=== PATIENT | female | born 1945 | race Caucasian/White ===

== ENCOUNTER 2017-05-27 16:48 | Inpatient (IN) | payer OTHER ==
[~2017-05-27] VITALS: Ht 157.5 cm; Wt 81.7 kg
[2017-05-27 17:46] LABS: BASOPHIL (%) 0.1 % (0-1); EOSINOPHIL (%) 0 % (0-5); HEMATOCRIT 27.7 % (36.0-46.0); HEMOGLOBIN 8.9 G/DL (11.9-15.5); IMMATURE GRANULOCYTE (%) 0.5 % (0.0-0.7); LYMPHOCYTE (%) 14.9 % (15-42); LYMPHOCYTE COUNT 1.1 K/uL (1.0-2.8); MCHC 32.1 G/DL (30.0-36.0); MONOCYTE (%) 2.9 % (3-12); MONOCYTE COUNT 0.2 K/uL (0-0.8); NEUTROPHIL (%) 81.6 % (45-76); PLATELET COUNT 209 K/uL (156-360); RBC DIS.WIDTH-CV 16.6 % (11.8-14.6); RBC DIS.WIDTH-SD 48.2 % (39-53); RED BLOOD COUNT 3.42 M/uL (3.80-5.20); WHITE BLOOD COUNT 7.3 K/uL (4.1-10.2)
[2017-05-27 17:55] LABS: ALBUMIN 3.3 g/dL (3.2-4.8); CHLORIDE 107 mEq/L (99-109); SODIUM 139 mEq/L (136-147)
[2017-05-27 17:56] LABS: MAGNESIUM 1.8 mg/dL (1.3-2.7)
[2017-05-27 17:58] LABS: GLUCOSE 210 mg/dL (70-99); TOTAL PROTEIN 5.5 g/dL (6.4-8.3)
[2017-05-27 18:00] LABS: TOTAL BILIRUBIN 0.4 mg/dL (0.0-1.0)
[2017-05-27 18:01] LABS: ALKALINE PHOSPHATASE 79 IU/L (3-129); CREATININE 0.7 mg/dL (0.6-1.3); GFR ESTIMATE (CALCULATED) > 59 mL/min/
[2017-05-27 18:02] LABS: UREA NITROGEN (BUN) 30 mg/dL (9-23)
[2017-05-27 18:03] LABS: AST (GOT) 27 IU/L (2-34)
[2017-05-27 18:04] LABS: ALT (GPT) 21 IU/L (3-49); CREATINE KINASE 203 IU/L (1-294); TOTAL CK 203 IU/L (1-294)
[2017-05-27 18:07] LABS: TROP-I INTERPRETATION NEGATIVE; TROPONIN-I 0.06 ng/mL (0.0-0.30)
[2017-05-27 18:10] LABS: INTER. NORMALIZED RATIO 1.1
[2017-05-27 18:13] LABS: CK-MB 5.4 ng/mL (0.0-4.9); CKMB RELATIVE INDEX 2.7 (0.0-3.9); PTT 21.9 SEC (25-37)
[2017-05-27 19:49] VITALS: BP 123/50
[2017-05-27] MEDS ORDERED: LYRICA75 MG PO (20:10)
[2017-05-27] MEDS ORDERED: MYCOSTATIN15 GM PO (20:10)
[2017-05-27] MEDS ORDERED: CELEBREX200 MG PO (20:11)
[2017-05-27] MEDS ORDERED: TOPROL XL100 MG PO (20:11)
[2017-05-27] MEDS ORDERED: CRESTOR10 MG PO (20:11)
[2017-05-27] MEDS ORDERED: ELAVIL50 MG PO (20:12)
[2017-05-27] MEDS ORDERED: FOLIC ACID0.4 MG PO (20:13)
[2017-05-27] MEDS ORDERED: HYDROCODON-ACE1 EAC9 PO (20:13)
[2017-05-27] MEDS ORDERED: SUPER B COMPL400 MCG PO (20:14)
[2017-05-27 23:20] VITALS: BP 201/85
[2017-05-27 23:30] VITALS: BP 201/85
[2017-05-28] VITALS (28 sets, daily range): BP systolic 110–182; BP diastolic 59–149
[2017-05-28 00:48] LABS: HEMATOCRIT 25.6 % (36.0-46.0); HEMOGLOBIN 8.5 G/DL (11.9-15.5); MCV 81.5 FL (83-99)
[2017-05-28 01:11] LABS: APPEARANCE SL.HAZY ((CLEAR)); BILIRUBIN NEGATIVE; BLOOD NEGATIVE; COLOR YELLOW ((YELLOW)); GLUCOSE (STRIP) NEGATIVE; KETONES 20; LEUKOCYTES SMALL; NITRITE POSITIVE; PROTEIN (STRIP) NEGATIVE; SPECIFIC GRAVITY 1.033 (1.000-1.030); UROBILINOGEN 0.2 MG/DL (0.2-1.0)
[2017-05-28 01:16] LABS: BACTERIA 2+ /HPF; EPITHELIAL CELLS RARE /HPF; HYALINE CASTS 0-5 /LPF; MUCUS NONE SEEN /LPF; RED BLOOD CELLS 0-5 /HPF (0-5); UCUL ADDED? YES; WHITE BLOOD CELLS 30-40 /HPF (0-5)
[2017-05-28 05:22] LABS: HEMATOCRIT 24.3 % (36.0-46.0); HEMOGLOBIN 7.7 G/DL (11.9-15.5); MCH 26.2 PG (29.0-34.0); MCHC 31.7 G/DL (30.0-36.0); MCV 82.7 FL (83-99); PLATELET COUNT 186 K/uL (156-360); RBC DIS.WIDTH-CV 16.3 % (11.8-14.6); RBC DIS.WIDTH-SD 48.6 % (39-53); RED BLOOD COUNT 2.94 M/uL (3.80-5.20)
[2017-05-28 05:45] LABS: INTER. NORMALIZED RATIO 1.1
[2017-05-28 05:46] LABS: CHLORIDE 111 MEQ/L (99-109); CREATININE 0.6 MG/DL (0.6-1.3); GFR ESTIMATE (CALCULATED) > 59 mL/min/; IRON 46 MCG/DL (35-150); POTASSIUM 4.1 MEQ/L (3.7-5.4); SODIUM 144 MEQ/L (136-147); TRANSFERRIN (TIBC) 262.5 mg/dL (215-380); TRANSFERRIN SATUR. 18 % (20-55); UREA NITROGEN (BUN) 21 mg/dL (9-23)
[2017-05-28 05:48] LABS: PTT 23.6 SEC (25-37)
[2017-05-28 05:50] LABS: GLUCOSE 115 mg/dL (70-99)
[2017-05-28 10:42] LABS: FOLIC ACID (FOLATE) > 22.0 NG/ML (5.0-22.0)
[2017-05-28 11:03] LABS: FERRITIN 16 NG/ML (10-291)
[2017-05-28 11:52] LABS: HDL CHOLESTEROL 40 MG/DL (Desirable>=50); LDL CHOLESTEROL 29 mg/dL (Desirable<100); NON-HDL CHOLESTEROL 44 mg/dL (Desirable<160); TOTAL CHOLESTEROL 84 mg/dL (Desirable<200); TRIGLYCERIDES 73 MG/DL (Normal: <150)
[2017-05-28 13:20] LABS: HEMATOCRIT 29.2 % (36.0-46.0); HEMOGLOBIN 9.4 G/DL (11.9-15.5); MCV 82.5 FL (83-99)
[2017-05-28 13:29] LABS: HEMOGLOBIN A1c (GLYCOHEMOGLOB) 5.6 % (Below 5.7)
[2017-05-28 18:36] LABS: HEMATOCRIT 32.7 % (36.0-46.0); HEMOGLOBIN 10.4 G/DL (11.9-15.5); MCV 83.8 FL (83-99)
[2017-05-29] VITALS (16 sets, daily range): BP systolic 151–180; BP diastolic 84–154
[2017-05-29 05:35] LABS: BASOPHIL (%) 0.6 % (0-1); EOSINOPHIL (%) 4.1 % (0-5); EOSINOPHIL COUNT 0.3 K/uL (0-0.3); HEMATOCRIT 28.8 % (36.0-46.0); HEMOGLOBIN 9.2 G/DL (11.9-15.5); IMMATURE GRANULOCYTE (%) 0.4 % (0.0-0.7); LYMPHOCYTE (%) 25.7 % (15-42); LYMPHOCYTE COUNT 1.8 K/uL (1.0-2.8); MCH 26.4 PG (29.0-34.0); MCHC 31.9 G/DL (30.0-36.0); MCV 82.5 FL (83-99); MONOCYTE (%) 9.4 % (3-12); MONOCYTE COUNT 0.7 K/uL (0-0.8); NEUTROPHIL (%) 59.8 % (45-76); NEUTROPHIL COUNT 4.3 K/uL (1.8-6.4); PLATELET COUNT 149 K/uL (156-360); RBC DIS.WIDTH-CV 16.8 % (11.8-14.6); RBC DIS.WIDTH-SD 49.8 % (39-53); RED BLOOD COUNT 3.49 M/uL (3.80-5.20); WHITE BLOOD COUNT 7.2 K/uL (4.1-10.2)
[2017-05-29 05:53] LABS: ALBUMIN 2.8 G/DL (3.2-4.8); CHLORIDE 110 MEQ/L (99-109); CREATININE 0.5 MG/DL (0.6-1.3); GFR ESTIMATE (CALCULATED) > 59 mL/min/; GLUCOSE 94 mg/dL (70-99); PHOSPHORUS 2.8 mg/dL (2.5-4.9); POTASSIUM 3.6 MEQ/L (3.7-5.4); SODIUM 140 MEQ/L (136-147); UREA NITROGEN (BUN) 10 mg/dL (9-23)
[2017-05-30] VITALS (24 sets, daily range): BP systolic 123–191; BP diastolic 59–109
[2017-05-30 10:15] LABS: BASOPHIL (%) 0.3 % (0-1); EOSINOPHIL COUNT 0.2 K/uL (0-0.3); HEMATOCRIT 32.4 % (36.0-46.0); HEMOGLOBIN 10.3 G/DL (11.9-15.5); IMMATURE GRANULOCYTE (%) 0.3 % (0.0-0.7); MCH 26.1 PG (29.0-34.0); MCHC 31.8 G/DL (30.0-36.0); MCV 82.2 FL (83-99); MONOCYTE (%) 7.4 % (3-12); MONOCYTE COUNT 0.6 K/uL (0-0.8); NEUTROPHIL COUNT 5.9 K/uL (1.8-6.4); PLATELET COUNT 178 K/uL (156-360); RBC DIS.WIDTH-CV 16.5 % (11.8-14.6); RBC DIS.WIDTH-SD 48.8 % (39-53); RED BLOOD COUNT 3.94 M/uL (3.80-5.20); WHITE BLOOD COUNT 7.7 K/uL (4.1-10.2)
[2017-05-30 10:24] LABS: CHLORIDE 102 MEQ/L (99-109); POTASSIUM 3.5 MEQ/L (3.7-5.4); SODIUM 135 MEQ/L (136-147)
[2017-05-30 10:30] LABS: CREATININE 0.5 MG/DL (0.6-1.3); GFR ESTIMATE (CALCULATED) > 59 mL/min/; GLUCOSE 209 mg/dL (70-99); UREA NITROGEN (BUN) 6 mg/dL (9-23)
[2017-05-31] VITALS (31 sets, daily range): BP systolic 72–191; BP diastolic 48–103
[2017-05-31 04:53] LABS: BASOPHIL (%) 0.5 % (0-1); EOSINOPHIL (%) 6.3 % (0-5); EOSINOPHIL COUNT 0.4 K/uL (0-0.3); HEMATOCRIT 31.4 % (36.0-46.0); HEMOGLOBIN 10.4 G/DL (11.9-15.5); IMMATURE GRANULOCYTE (%) 0.3 % (0.0-0.7); LYMPHOCYTE (%) 18.4 % (15-42); LYMPHOCYTE COUNT 1.1 K/uL (1.0-2.8); MCH 27.3 PG (29.0-34.0); MCHC 33.1 G/DL (30.0-36.0); MCV 82.4 FL (83-99); MONOCYTE (%) 10.9 % (3-12); MONOCYTE COUNT 0.7 K/uL (0-0.8); NEUTROPHIL (%) 63.6 % (45-76); NEUTROPHIL COUNT 3.9 K/uL (1.8-6.4); PLATELET COUNT 171 K/uL (156-360); RBC DIS.WIDTH-CV 16.4 % (11.8-14.6); RBC DIS.WIDTH-SD 48.2 % (39-53); RED BLOOD COUNT 3.81 M/uL (3.80-5.20); WHITE BLOOD COUNT 6.1 K/uL (4.1-10.2)
[2017-05-31 06:05] LABS: CHLORIDE 103 MEQ/L (99-109); CREATININE 0.5 MG/DL (0.6-1.3); GFR ESTIMATE (CALCULATED) > 59 mL/min/; POTASSIUM 4.1 MEQ/L (3.7-5.4); SODIUM 139 MEQ/L (136-147); UREA NITROGEN (BUN) 4 mg/dL (9-23)
[2017-05-31 06:08] LABS: GLUCOSE 115 mg/dL (70-99)
[2017-05-31 08:13] LABS: MAGNESIUM 1.7 mg/dl (1.3-2.7); PHOSPHORUS 3.1 mg/dL (2.5-4.9)
[2017-05-31 14:36] LABS: HEMATOCRIT 34.2 % (36.0-46.0); MCV 82.8 FL (83-99)
[2017-06-01] VITALS (18 sets, daily range): BP systolic 127–180; BP diastolic 69–103
[2017-06-01 06:05] LABS: BASOPHIL (%) 0.5 % (0-1); EOSINOPHIL COUNT 0.5 K/uL (0-0.3); HEMATOCRIT 33.6 % (36.0-46.0); HEMOGLOBIN 10.7 G/DL (11.9-15.5); IMMATURE GRANULOCYTE (%) 0.3 % (0.0-0.7); LYMPHOCYTE (%) 16.4 % (15-42); LYMPHOCYTE COUNT 1.1 K/uL (1.0-2.8); MCH 26.4 PG (29.0-34.0); MCHC 31.8 G/DL (30.0-36.0); MCV 82.8 FL (83-99); MONOCYTE (%) 11.4 % (3-12); MONOCYTE COUNT 0.8 K/uL (0-0.8); NEUTROPHIL (%) 64.4 % (45-76); NEUTROPHIL COUNT 4.3 K/uL (1.8-6.4); PLATELET COUNT 228 K/uL (156-360); RBC DIS.WIDTH-SD 49.4 % (39-53); RED BLOOD COUNT 4.06 M/uL (3.80-5.20); WHITE BLOOD COUNT 6.6 K/uL (4.1-10.2)
[2017-06-01] MEDS ORDERED: RESTASIS MULTI5.5 ML BOTH EYES (20:48)
[2017-06-02] VITALS (9 sets, daily range): BP systolic 122–201; BP diastolic 64–104
[2017-06-02 05:54] LABS: BASOPHIL (%) 0.6 % (0-1); EOSINOPHIL (%) 8.6 % (0-5); EOSINOPHIL COUNT 0.5 K/uL (0-0.3); HEMATOCRIT 36.1 % (36.0-46.0); HEMOGLOBIN 11.7 G/DL (11.9-15.5); IMMATURE GRANULOCYTE (%) 0.5 % (0.0-0.7); LYMPHOCYTE (%) 20.9 % (15-42); LYMPHOCYTE COUNT 1.3 K/uL (1.0-2.8); MCH 27.2 PG (29.0-34.0); MCHC 32.4 G/DL (30.0-36.0); MONOCYTE (%) 11.3 % (3-12); MONOCYTE COUNT 0.7 K/uL (0-0.8); NEUTROPHIL (%) 58.1 % (45-76); NEUTROPHIL COUNT 3.6 K/uL (1.8-6.4); PLATELET COUNT 247 K/uL (156-360); RBC DIS.WIDTH-CV 17.5 % (11.8-14.6); RBC DIS.WIDTH-SD 51.2 % (39-53); WHITE BLOOD COUNT 6.2 K/uL (4.1-10.2)
[2017-06-02] MEDS ORDERED: LISINOPRIL10 MG PO (13:36)
[2017-06-02] MEDS ORDERED: PROTONIX40 MG PO (13:38)
[2017-06-02] MEDS ORDERED: Salonpas 4% Patch TD (13:39)
[2017-06-02] MEDS ORDERED: KEFLEX500 MG PO (13:39)
== END 2017-06-02 15:57 | disposition home health service (06) | DRG 378 ==
LOC: EME 16:48 → 4WEST 22:25 → EDOF 22:25 → ENRESERV 22:25 → 4WEST 23:03 → ENRESERV 06-01 13:51 → 4WEST 06-02 15:57
PROVIDERS: Emergency Medicine; Internal Medicine; Internal Medicine Critical Care Medicine; Internal Medicine Gastroenterology; Obstetrics & Gynecology; Specialist; Surgery
DX: K92.0 Hematemesis (principal); K92.1 Melena; D51.3 Other dietary vitamin B12 deficiency anemia; D68.51 Activated protein C resistance; I48.0 Paroxysmal atrial fibrillation; I95.9 Hypotension, unspecified; E87.2 Acidosis; N39.0 Urinary tract infection, site not specified; B96.20 Unspecified Escherichia coli [E. coli] as the cause of diseases classified elsewhere; R47.01 Aphasia; S90.112A Contusion of left great toe without damage to nail, initial encounter; S06.0X1A Concussion with loss of consciousness of 30 minutes or less, initial encounter; R40.2412 Glasgow coma scale score 13-15, at arrival to emergency department; S22.32XA Fracture of one rib, left side, initial encounter for closed fracture; W10.9XXA Fall (on) (from) unspecified stairs and steps, initial encounter; Y92.009 Unspecified place in unspecified non-institutional (private) residence as the place of occurrence of the external cause; H81.399 Other peripheral vertigo, unspecified ear; K64.8 Other hemorrhoids; I10 Essential (primary) hypertension; G43.909 Migraine, unspecified, not intractable, without status migrainosus; M79.7 Fibromyalgia; M19.90 Unspecified osteoarthritis, unspecified site; E66.01 Morbid (severe) obesity due to excess calories; Z68.33 Body mass index [BMI] 33.0-33.9, adult; G93.0 Cerebral cysts; K21.9 Gastro-esophageal reflux disease without esophagitis; E78.2 Mixed hyperlipidemia; M48.02 Spinal stenosis, cervical region; Z98.84 Bariatric surgery status; Z86.73 Personal history of transient ischemic attack (TIA), and cerebral infarction without residual deficits; Z86.718 Personal history of other venous thrombosis and embolism; Z87.891 Personal history of nicotine dependence; Z96.651 Presence of right artificial knee joint; Z79.1 Long term (current) use of non-steroidal anti-inflammatories (NSAID); Z79.82 Long term (current) use of aspirin
CPT/HCPCS: 70450; 70544; 70551; 71260; 72125; 72128; 72129; 72220; 73630; 74177; 74183; 74250; 80047; 80048; 80053; 80061; 80069; 81003; 82306; 82550; 82553; 82607; 82728; 82746; 83036; 83540; 83605; 83735; 84100; 84466; 84484; 84590 90; 85014; 85018; 85025; 85027; 85610; 85730; 86850; 86900; 86901; 86920; 87077; 87086; 87186; 87641; 88305; 88342 TC; 92610 GN; 93005; 93306; 94799; 97530 GO; 97530 GP; 99281; 99285; C1751; C9113; J0360; J0696; J1160; J2060; J2250; J2270; J2405; J3420; J3475; J7030; J7040; J7050; P9016; S0028